=== PATIENT | male | born 1950 | race Caucasian/White ===

== ENCOUNTER 2018-01-17 10:04 | Emergency (ER) | payer MEDICARE, BC ==
[2018-01-17] MEDS ORDERED: NITROGLYCERIN 0.4 MG TAB SL PRN (10:17)
[2018-01-17] MEDS ORDERED: ASPIRIN 81 MG CHEWABLE CTB PO STA (10:17)
[2018-01-17] MEDS ORDERED: SODIUM CHLORIDE 0.9% FLUSH 10 ML SOL IV PRN (10:17)
[2018-01-17 10:25] LABS: BASOPHILS % (AUTO) 2 % (0-3); EOSINOPHILS % (AUTO) 5 % (0-9); HEMATOCRIT 46 % (39-53); MEAN CORPUSCULAR HGB CONC 33.5 gm/dl (32.0-36.0); MEAN CORPUSCULAR VOLUME 85 fL (80-100); MONOCYTES % (AUTO) 6.1 % (0-12)
[2018-01-17 10:28] VITALS: TEMP 97.9
[2018-01-17 10:36] LABS: BLOOD UREA NITROGEN 16 mg/dl (7-18); CALCIUM 8.7 mg/dl (8.5-10.1); GLOM FILT RATE 51 mL/min (>60); GLUCOSE 134 mg/dl (74-106); POTASSIUM 3.7 mMol/L (3.5-5.1); SODIUM 138 mMol/L (136-145)
[2018-01-17 11:07] LABS: ALBUMIN 3.7 gm/dl (3.4-5.0); ALKALINE PHOSPHATASE 42 IU/L (46-116); ALT 25 IU/L (14-63); AST 11 IU/L (15-37); BILIRUBIN,TOTAL 0.4 mg/dl (0.2-1.0); THYROID STIMULATING HORMONE 2.395 uIU/ml (0.358-3.740)
[2018-01-17 11:39] VITALS: BP 129/85; PULSE 85; RESP 17; O2SAT 97
== END 2018-01-17 11:30 | disposition home or self-care (01) | DRG 948 ==
LOC: ED 10:04
DX: R53.82 Chronic fatigue, unspecified (principal); R06.02 Shortness of breath; Z79.899 Other long term (current) drug therapy
CPT/HCPCS: 71045; 80053; 82550; 84443; 84484; 85025; 85610; 85730; 93005; 99284

== ENCOUNTER 2018-07-13 10:07 | Outpatient (CLI) | payer OTHER, MEDICARE, BC ==
[2018-01-17 11:39] VITALS: O2SAT 97
== END 2018-07-13 10:08 | disposition home or self-care (01) | DRG 561 ==
LOC: CONVCARE 10:07
PROVIDERS: ATTEND Orthopaedic Surgery
DX: S82.141D Displaced bicondylar fracture of right tibia, subsequent encounter for closed fracture with routine healing (principal)
CPT/HCPCS: 73564

== ENCOUNTER 2018-08-17 14:50 | Outpatient (CLI) | payer MEDICARE, BC ==
[2018-01-17 11:39] VITALS: O2SAT 97
== END 2018-08-17 14:51 | disposition home or self-care (01) | DRG 561 ==
LOC: CONVCARE 14:50
PROVIDERS: ATTEND Orthopaedic Surgery
DX: S82.141D Displaced bicondylar fracture of right tibia, subsequent encounter for closed fracture with routine healing (principal)
CPT/HCPCS: 73564

== ENCOUNTER 2018-09-28 13:37 | Outpatient (CLI) | payer MEDICARE, BC ==
[2018-01-17 11:39] VITALS: O2SAT 97
== END 2018-09-28 13:38 | disposition home or self-care (01) | DRG 552 ==
LOC: CONVCARE 13:37
PROVIDERS: ATTEND Orthopaedic Surgery
DX: M47.9 Spondylosis, unspecified (principal)
CPT/HCPCS: 72120

== ENCOUNTER → 2018-10-25 | Day surgery (SDC) | payer BC, MEDICARE | LOC: SURG 13:03 ==

== ENCOUNTER 2018-12-05 13:29 | Day surgery (SDC) | payer BC ==
[2018-12-05 14:24] VITALS: TEMP 97.9
[2018-12-05 14:53] VITALS: RESP 16
[2018-12-05 14:56] VITALS: BP 148/70; PULSE 87; O2SAT 95
== END 2018-12-05 15:26 | disposition home or self-care (01) | DRG 554 ==
LOC: SURG 13:29
PROVIDERS: ATTEND Nurse Anesthetist, Certified Registered
DX: M12.88 Other specific arthropathies, not elsewhere classified, other specified site (principal)

== ENCOUNTER 2019-01-17 12:11 | Day surgery (SDC) | payer BC ==
[2019-01-17] MEDS ORDERED: SODIUM CHLORIDE 0.9% FLUSH 10 ML SOL IV ONE ×3 (13:08→14:06)
[2019-01-17] MEDS ORDERED: LIDOCAINE HCL 2% MPF 10 ML SOL ONE (13:15)
[2019-01-17] MEDS ORDERED: BUPIVACAINE HCL 0.25% MPF 30 ML SOL INFIL ONE (13:15)
[2019-01-17] MEDS ORDERED: LIDOCAINE HCL 1% MPF 30 SOL ONE (13:15)
[2019-01-17] MEDS: MIDAZOLAM 2 MG/2 ML SOL ONE ×2 (13:23→14:04)
[2019-01-17] MEDS: FENTANYL 100MCG/2ML SOL ONE ×2 (13:24→14:06)
[2019-01-17] MEDS: TRIAMCINOLONE ACETONIDE 40 MG/ML SUS ONE ×5 (13:44→14:10)
[2019-01-17 14:28] VITALS: BP 135/74; PULSE 68; RESP 18; TEMP 97.4; O2SAT 95
== END 2019-01-17 14:49 | disposition home or self-care (01) | DRG 554 ==
LOC: SURG 12:11
PROVIDERS: ATTEND Nurse Anesthetist, Certified Registered
DX: M12.88 Other specific arthropathies, not elsewhere classified, other specified site (principal)
CPT/HCPCS: J2250; J3010; J2001; J3300